=== PATIENT | male | born 1990 | race Caucasian/White ===

== ENCOUNTER 2018-07-19 22:31 | Emergency (ER) | payer BC ==
[~2018-07-19] VITALS: Ht 182.9 cm; Wt 1525.9 kg
[2018-07-19 22:44] VITALS: Ht 182.9 cm; Wt 1525.9 kg
[2018-07-20 01:19] VITALS: BP 115/54
== END 2018-07-20 01:19 | disposition home or self-care (01) ==
LOC: ED 22:31
DX: S01.81XA Laceration without foreign body of other part of head, initial encounter (principal); X99.0XXA Assault by sharp glass, initial encounter; Y93.89 Activity, other specified; Y92.89 Other specified places as the place of occurrence of the external cause; Y99.8 Other external cause status
CPT/HCPCS: J2001; Q0162